=== PATIENT | male | born 1985 | race African-American/Black ===

== ENCOUNTER → 2016-05-06 | Emergency (ER) | payer OTHER ==
[~2016-05-06] VITALS: Ht 190.5 cm; Wt 130.2 kg
[~2016-05-06] MED LIST: CHLORPHENIRAMINE4 MG ORAL; CLOTRIMAZOLE15 GM TOPIC; IBUPROFEN600 MG ORAL; IBUPROFEN800 MG ORAL; METFORMIN HCL500 M1 ORAL; NORCO 7.5-3251 EACH ORAL; PRILOSEC20 MG ORAL; RANITIDINE HCL150 MG ORAL; ZANTAC150 MG ORAL; ZITHROMAX250 MG ORAL; metFORMIN 500mg tab ORAL SCH
[2016-05-06 23:00] VITALS: BP 140/99
--- NOTE | 2016-05-09 06:51 | Emergency Room Report ---
History of Present Illness General Chief Complaint: Skin Rash/Abscess Source: Patient Present Illness HPI Patient is a 30-year-old male who presented after having increased itchy rash to his groin area. The patient gradual onset of symptoms over the past 2 days. Patient was noted to be diabetic and poorly compliant with his diet and medications. Patient not having a fever. He reported having a rash gradual onset. He denied any pain. He had a mild itchiness. He was noted to have some elevated blood sugars. The patient had not been regularly taking his medication metformin. Allergies: Coded Allergies: No Known Allergies (Verified , 11/22/07) Patient History Past Medical History: see triage record Reviewed Nursing Documentation: PMH: Agreed, PSxH: Agreed Nursing Documentation-PMH Past Medical History: No History, Except For Hx Gastrointestinal Problems: Yes - ACID REFLUX Review of Systems All Other Systems: negative except mentioned in HPI Physical Exam Vital Signs Date Time Temp Pulse Resp B/P Pulse Ox O2 Delivery O2 Flow Rate FiO2 05/06/16 21:04 97.3 92 14 142/92 99 Room Air General Appearance: well appearing, no apparent distress, alert, GCS 15, obese Head: normocephalic, atraumatic ENT: hearing grossly normal, normal voice Neck: full range of motion, supple Respiratory: no respiratory distress, speaking full sentences Cardiovascular #1: normal peripheral pulses, regular rate, rhythm Gastrointestinal: non tender, soft Musculoskeletal: no calf tenderness Neurologic: normal inspection, alert, oriented x3, responsive, normal gait Psychiatric: normal inspection, mood/affect normal Skin: rash - scaly rash to inguinal area without erythema or exudate Medical Decision Making Diagnostic Impression: Primary Impression: Hyperglycemia Additional Impression: Tinea cruris ER Course Patient presented for skin rash. Differential diagnosis included was not limited to scabies, syphilis, herpes, tinea, among others. Patient's benign exam and does not appear to require any further imaging or laboratory testing at this time. Per the patient's family member the patient is poorly controlled diabetes baseline. The patient was given metformin. He was noted to have a rash consistent with tinea. The patient was given prescription for antifungal medications. The patient is advised to follow up with primary care doctor in 1 -2 days. Patient is advised to return if any worsening condition or if any changes in status that are concerning. Last Vital Signs Date Time Temp Pulse Resp B/P Pulse Ox O2 Delivery O2 Flow Rate FiO2 1/3/17 23:00 87 14 140/99 99 Room Air 05/06/16 23:00 97.5 Status: improved Disposition: HOME, SELF-CARE Condition: Stable Scripts Clotrimazole* (LOTRIMIN*) 15 Gm Cream..g. 1 APPLIC TOPIC TWICE A DAY, #15 GM Prov: Slava Tarango 05/06/16 Metformin Hcl* (METFORMIN HCL*) 500 Mg Tablet 500 MG ORAL TWICE A DAY, #60 TAB Prov: Slava Tarango 05/06/16 Patient Instructions: Alex [place], Type 2 Diabetes Mellitus, Adult, [id number] Slava Tarango May 09, 2016 06:51
== END | disposition home or self-care (01) ==
LOC: EMR 21:34
DX: E11.65 Type 2 diabetes mellitus with hyperglycemia (principal); B35.6 Tinea cruris; R21 Rash and other nonspecific skin eruption; Z91.11 Patient's noncompliance with dietary regimen; Z91.14 Patient's other noncompliance with medication regimen; K21.9 Gastro-esophageal reflux disease without esophagitis; Z79.84 Long term (current) use of oral hypoglycemic drugs
CPT/HCPCS: 82962; 99283; J1815

== ENCOUNTER 2016-10-02 03:59 | Emergency (ER) | payer OTHER ==
[~2016-10-02] VITALS: Ht 190.5 cm; Wt 122.5 kg
[~2016-10-02 03:59] MED LIST changes: -metFORMIN 500mg tab ORAL SCH
[2016-10-02 04:11] VITALS: BP 138/87
[2016-10-02] MEDS ORDERED: IBUPROFEN600 MG ORAL (04:29)
[2016-10-02] MEDS ORDERED: BACTRIM DS TAB1 EAC1 ORAL (04:29)
[2016-10-02] MEDS ORDERED: Bactrim DS (160mg/800mg) tab ORAL ONE (04:30)
--- NOTE | 2016-10-02 04:30 | Emergency Room Report ---
History of Present Illness General Chief Complaint: Skin Rash/Abscess Source: Patient Present Illness HPI This is a 30-year-old male with no significant past medical history. He presents with an abscess to his left buttock. Been ongoing for 3 days. Been draining last 2 days. He does have a history of diabetes. No fever chills but no nausea no vomiting. Pain is 5/10. Allergies: Coded Allergies: No Known Allergies (Verified , 11/22/07) Patient History Past Medical History: see triage record, old chart reviewed Past Surgical History: none Pertinent Family History: none Social History: Denies: smoking Immunizations: other Reviewed Nursing Documentation: PMH: Agreed, PSxH: Agreed Nursing Documentation-PMH Past Medical History: No History, Except For Hx Gastrointestinal Problems: Yes - ACID REFLUX Review of Systems Eye: Denies: blurred vision, eye pain ENT: Denies: ear pain, nose congestion, throat swelling Respiratory: Denies: cough, shortness of breath Cardiovascular: Denies: chest pain, palpitations Gastrointestinal: Denies: abdominal pain, diarrhea, nausea, vomiting Musculoskeletal: Denies: back pain, joint pain Skin: Denies: rash Neurological: Denies: headache, numbness Endocrine: Denies: increased thirst, increased urine Hematologic/Lymphatic: Denies: easy bruising All Other Systems: negative except mentioned in HPI Physical Exam Vital Signs Date Time Temp Pulse Resp B/P Pulse Ox O2 Delivery O2 Flow Rate FiO2 10/02/16 04:02 97.7 75 16 138/87 95 Room Air vitals normal Sp02 EP Interpretation: reviewed, normal General Appearance: well appearing, no apparent distress, alert Head: normocephalic, atraumatic Eyes: bilateral eye EOMI, bilateral eye PERRL ENT: hearing grossly normal, normal pharynx Neck: full range of motion, supple, no meningismus Respiratory: chest non-tender, lungs clear, normal breath sounds Cardiovascular #1: regular rate, rhythm, no murmur Gastrointestinal: normal bowel sounds, non tender, no mass, no organomegaly, no bruit, non-distended Rectal: other - Left buttock with indurated area of 4 cm. Small central pinpoint opening with purulent drainage. This is near the rectal area. Musculoskeletal: back normal, gait/station normal, normal range of motion Neurologic: alert, oriented x3 Psychiatric: mood/affect normal Skin: warm/dry Procedures Incision and Drainage Incision and Drainage : Consent: Verbal Site: Left buttock Blade Size: 11 I & D Procedure: betadine prep, sterile drapes applied, sterile dressing applied, gauze wick placed Anesthesia: 1% Lidocaine Volume Anesthetic (ccs): 3 Patient Tolerated: Well Complications: None Medical Decision Making Diagnostic Impression: Primary Impression: Left buttock abscess ER Course Patient with an abscess to the left buttock. Most likely MRSA. No evidence of deep infection. No redness. We'll discharge home with antibiotics. Last Vital Signs Date Time Temp Pulse Resp B/P Pulse Ox O2 Delivery O2 Flow Rate FiO2 10/02/16 04:11 97.7 75 16 138/87 95 Room Air Status: improved Disposition: HOME, SELF-CARE Condition: Stable Scripts Ibuprofen* (MOTRIN*) 600 Mg Tablet 600 MG ORAL Q8H Y for For Pain, #30 TAB 0 Refills Prov: TALYA RIVAS M.D. 10/02/16 Trimethoprim/Sulfamethoxazole 160/800* (BACTRIM DS TABLET*) 1 Each Tablet 1 TAB ORAL Q12H, #14 TAB 0 Refills Prov: TALYA RIVAS M.D. 10/02/16 Patient Instructions: Abscess Additional Instructions: Followup in 2 days for recheck. Return if worse. TALYA RIVAS M.D. Oct 02, 2016 04:29
[2016-10-02 04:41] VITALS: BP 132/87
[2016-10-02 04:48] VITALS: BP 132/87
== END 2016-10-02 04:50 | disposition home or self-care (01) ==
LOC: EMR 04:15
DX: L02.31 Cutaneous abscess of buttock (principal); K21.9 Gastro-esophageal reflux disease without esophagitis
CPT/HCPCS: 10060

== ENCOUNTER 2016-10-04 05:26 | Emergency (ER) | payer OTHER ==
[~2016-10-04] VITALS: Ht 190.5 cm; Wt 122.5 kg
[~2016-10-04 05:26] MED LIST changes: +BACTRIM DS TAB1 EAC1 ORAL
[2016-10-04 06:01] VITALS: BP 122/80
--- NOTE | 2016-10-07 08:04 | Emergency Room Report ---
History of Present Illness General Chief Complaint: Wound Recheck/Suture Removal Source: Patient Present Illness HPI The patient is a 30-year-old male who presented after having the recent incision and drainage. Patient had abscess drained approximately 2 days ago. He denied any current complaints. He denied history fluids. Patient requested packing be removed. Patient noted be diabetic. He denied any fever Allergies: Coded Allergies: No Known Allergies (Verified , 11/22/07) Patient History Past Medical History: see triage record, DM Reviewed Nursing Documentation: PMH: Agreed, PSxH: Agreed Nursing Documentation-PMH Past Medical History: No History, Except For Hx Gastrointestinal Problems: Yes - ACID REFLUX Review of Systems All Other Systems: negative except mentioned in HPI Physical Exam Vital Signs Date Time Temp Pulse Resp B/P Pulse Ox O2 Delivery O2 Flow Rate FiO2 10/04/16 05:32 98.1 98 16 121/79 100 Room Air General Appearance: well appearing, no apparent distress, alert, GCS 15, obese Head: normocephalic, atraumatic ENT: hearing grossly normal, normal voice Neck: full range of motion, supple Respiratory: no respiratory distress, speaking full sentences Musculoskeletal: normal inspection, no calf tenderness Neurologic: normal inspection, alert, oriented x3, responsive, normal gait Psychiatric: mood/affect normal Skin: no rash Medical Decision Making Diagnostic Impression: Primary Impression: wound check ER Course Patient presented for wound check. Differential diagnosis included was not limited to infected wound, nonhealed wound, neuroma, healed wound. Patient's benign exam and does not appear to require any further imaging or laboratory testing at this time. The packing was removed. There is no purulent drainage.The patient is advised to follow up with primary care doctor in 2 days. Patient is advised to return if any worsening condition or if any changes in status that are concerning. Last Vital Signs Date Time Temp Pulse Resp B/P Pulse Ox O2 Delivery O2 Flow Rate FiO2 10/04/16 06:01 98.1 66 16 122/80 100 Room Air Status: improved Disposition: HOME, SELF-CARE Condition: Improved Referrals: [facility] (PCP) Patient Instructions: Wound Check Slava Tarango Oct 07, 2016 08:04
== END 2016-10-04 06:05 | disposition home or self-care (01) ==
LOC: EMR 06:03
DX: Z09 Encounter for follow-up examination after completed treatment for conditions other than malignant neoplasm (principal); E11.9 Type 2 diabetes mellitus without complications; K21.9 Gastro-esophageal reflux disease without esophagitis
CPT/HCPCS: 99281

== ENCOUNTER 2018-09-09 21:35 | Emergency (ER) | payer OTHER ==
[~2018-09-09] VITALS: Ht 190.5 cm; Wt 112.0 kg
[2018-09-09 23:18] VITALS: BP 149/99
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
--- NOTE | 2018-09-09 23:26 | Emergency Room Report ---
History of Present Illness General Chief Complaint: Pain Source: Patient Present Illness HPI Patient is a 32-year-old male presented after increased numbness to both legs as well as burning sensation to his upper extremities. Patient reports being noncompliant with his medication for diabetes. He has type 2 diabetes. Patient was noted to be present with his mother. Patient had reportedly not been taking any medications but denies taking his blood sugar either. He denies any current polydipsia or polyuria. He had not been having a fever. Allergies: Coded Allergies: No Known Allergies (Verified , 11/22/07) Patient History Reviewed Nursing Documentation: PMH: Agreed; PSxH: Agreed Nursing Documentation-PMH Hx Diabetes: Yes Hx Gastrointestinal Problems: Yes - ACID REFLUX History Of Psychiatric Problem: Yes - BIPOLAR Review of Systems All Other Systems: negative except mentioned in HPI Physical Exam Vital Signs Date Time Temp Pulse Resp B/P (MAP) Pulse Ox O2 Delivery O2 Flow Rate FiO2 09/09/18 21:40 98.1 74 16 94 Room Air General Appearance: well appearing, no apparent distress, alert, GCS 15 Head: normocephalic, atraumatic ENT: hearing grossly normal, normal voice Neck: full range of motion, supple Respiratory: no respiratory distress, speaking full sentences Gastrointestinal: normal inspection, non tender Musculoskeletal: normal inspection Neurologic: normal inspection, alert, oriented x3, responsive, senior it auditor III-XII nml as tested, motor strength/tone normal, normal gait Psychiatric: mood/affect normal Skin: no rash Medical Decision Making Diagnostic Impression: Primary Impression: Hyperglycemia Additional Impression: Peripheral neuropathy ER Course Patient presented for bilateral lower extremity numbness and tingling. Patient patient was noted to be noncompliant diabetic. Differential diagnosis include was not limited to CVA, neuropathy, multiple sclerosis among others. Patient is a 32-year-old male presented after increased diffuse numbness. Differential diagnosis include was not limited to traumatic injury, neuropathy, shingles among others. . Patient has a benign exam and does not appear to require any further imaging or laboratory testing at this time. Patient noted to have a nonfocal neurologic exam. Patient was noted to have multiple areas of stocking glove distribution numbness. Patient was advised to follow-up with primary care physician for further evaluation and MRI. Patient is advised to be more compliant with his medications. He is given prescription for gabapentin for discomfort. Last Vital Signs Date Time Temp Pulse Resp B/P (MAP) Pulse Ox O2 Delivery O2 Flow Rate FiO2 09/09/18 21:40 98.1 74 16 94 Room Air Status: improved Disposition: HOME, SELF-CARE Condition: Stable Scripts Gabapentin* (GABAPENTIN*) 300 Mg Capsule 300 MG ORAL THREE TIMES A DAY, #30 CAP 0 Refills Prov: Slava Tarango MD 09/09/18 Referrals: [facility] (PCP) Slava Tarango MD September 09, 2018 23:26
[2018-09-09] MEDS ORDERED: GABAPENTIN300 MG ORAL (23:40)
[2018-09-09 23:55] VITALS: BP 149/99
--- NOTE | 2018-09-09 23:55 | NUR ---
ER DISCHARGE NOTE: Patient is cleared to be discharged per Dr. Tarango. Pt is aox4 on room air with stable vital signs. Pt was given dc and prescription instructions, pt was able to verbalize understanding, pt id band removed. pt is able to ambulate with steady gait. pt took all belongings.
== END 2018-09-09 23:55 | disposition home or self-care (01) ==
LOC: EMR 23:02
DX: E11.65 Type 2 diabetes mellitus with hyperglycemia (principal); E11.42 Type 2 diabetes mellitus with diabetic polyneuropathy; K21.9 Gastro-esophageal reflux disease without esophagitis; F31.9 Bipolar disorder, unspecified
CPT/HCPCS: 82962; 99282

== ENCOUNTER 2018-11-26 11:56 | Emergency (ER) | payer OTHER ==
[~2018-11-26] VITALS: Ht 190.5 cm; Wt 108.9 kg
[~2018-11-26 11:56] MED LIST changes: +GABAPENTIN300 MG ORAL
--- NOTE | 2018-11-26 12:32 | Emergency Room Report ---
History of Present Illness General Chief Complaint: Medication Refill Source: Patient Present Illness HPI 32-year-old male with history of diabetes and diabetic neuropathy currently on metformin and gabapentin here requesting a prescription refill on his gabapentin. Patient reports that he often gets burning sensation and tingling sensation in both feet. Has not seen his primary care physician in over 3 months. And has not been sent to handle sander operator. Patient demands to get a month supply of gabapentin and I advised him that he needs to see his primary care physician have hemoglobin A1c checked and we cannot give large quantities of this specific medication as patient is noncompliant with following up on his diabetes. Denies injury to the feet, chest pain, shortness of breath, palpitation, no other associated symptoms. Allergies: Coded Allergies: No Known Allergies (Verified , 11/22/07) Patient History Past Medical History: see triage record Past Surgical History: unable to obtain Pertinent Family History: none Immunizations: UTD Reviewed Nursing Documentation: PMH: Agreed; PSxH: Agreed Nursing Documentation-PMH Past Medical History: No History, Except For Hx Diabetes: Yes Hx Gastrointestinal Problems: Yes - ACID REFLUX Review of Systems All Other Systems: negative except mentioned in HPI Physical Exam Vital Signs Date Time Temp Pulse Resp B/P (MAP) Pulse Ox O2 Delivery O2 Flow Rate FiO2 11/26/18 12:23 98.4 87 16 122/87 (99) 98 Room Air Sp02 EP Interpretation: reviewed, normal General Appearance: normal inspection, well appearing, no apparent distress, alert, GCS 15 Head: normocephalic, atraumatic Eyes: bilateral eye normal inspection, bilateral eye PERRL ENT: normal ENT inspection, hearing grossly normal, normal pharynx, no angioedema Neck: normal inspection, full range of motion, supple, thyroid normal, no meningismus Respiratory: normal inspection, chest non-tender, lungs clear, normal breath sounds, no rhonchi, no wheezing Cardiovascular #1: normal inspection, normal peripheral pulses, regular rate, rhythm, no edema, no gallop, no JVD, no murmur Cardiovascular #2: 2+ dorsalis pedis (R), 2+ dorsalis pedis (L) Gastrointestinal: normal inspection, non tender, soft, no bruit, non-distended Genitourinary: no CVA tenderness Neurologic: normal inspection, alert, oriented x3 Psychiatric: normal inspection, judgement/insight normal, memory normal, mood/ affect normal Skin: no rash, palpation normal Lymphatic: normal inspection, no adenopathy Medical Decision Making PA Attestation All my diagnosis and treatment plans were reviewed ad discussed with my supervising physician Dr. Washington Diagnostic Impression: Primary Impression: Encounter for medication refill Additional Impression: Diabetic neuropathy ER Course 32-year-old male with history of diabetes and diabetic neuropathy currently on metformin and gabapentin here requesting a prescription refill on his gabapentin. Patient reports that he often gets burning sensation and tingling sensation in both feet. Has not seen his primary care physician in over 3 months. And has not been sent to handle sander operator. Patient demands to get a month supply of gabapentin and I advised him that he needs to see his primary care physician have hemoglobin A1c checked and we cannot give large quantities of this specific medication as patient is noncompliant with following up on his diabetes. Denies injury to the feet, chest pain, shortness of breath, palpitation, no other associated symptoms. Ddx considered but are not limited to: Drug-seeking behavior, medication refill , cellulitis, diabetic neuropathy Vital signs: are WNL, pt. is afebrile H&PE are most consistent with: Medication refill for diabetic neuropathy ORDERS: Gabapentin ED INTERVENTIONS: None required at this time. DISCHARGE: At this time pt. is stable for d/c to home. Will provide printed patient care instructions, and any necessary prescriptions. Care plan and follow up instructions have been discussed with the patient prior to discharge. Follow with your primary care for further work-up and refill of gabapentin Last Vital Signs Date Time Temp Pulse Resp B/P (MAP) Pulse Ox O2 Delivery O2 Flow Rate FiO2 11/26/18 12:23 98.4 87 16 122/87 (99) 98 Room Air Disposition: HOME, SELF-CARE Condition: Stable Scripts Gabapentin* (GABAPENTIN*) 300 Mg Capsule 300 MG ORAL THREE TIMES A DAY for 3 Days, #10 CAP 0 Refills Prov: David Hillman 11/26/18 Patient Instructions: Medicine Refill at the Emergency Department, Neuropathic Pain Additional Instructions: Follow-up with your primary care provider for further refills of this medication he also need to have months due to your diabetes in order to see fluctuations of your hemoglobin A1c. 4 large quantity is an emergency room setting you also need to be sent to a handle sander operator by your primary care physician. David Hillman Nov 26, 2018 12:32
[2018-11-26] MEDS ORDERED: GABAPENTIN300 MG ORAL (12:33)
[2018-11-26 12:38] VITALS: BP 122/87
--- NOTE | 2018-11-26 12:39 | NUR ---
ER DISCHARGE NOTE: Patient is cleared to be discharged per ERMD, pt is aox4, on room air, with stable vital signs. pt was given dc and prescription instructions, pt was able to verbalize understanding, pt id band removed without complications. pt is able to ambulate with steady gait. pt took all belongings.
== END 2018-11-26 12:38 | disposition home or self-care (01) ==
LOC: EMR 12:25
DX: Z76.0 Encounter for issue of repeat prescription (principal); E11.40 Type 2 diabetes mellitus with diabetic neuropathy, unspecified; K21.9 Gastro-esophageal reflux disease without esophagitis; Z79.84 Long term (current) use of oral hypoglycemic drugs; Z79.899 Other long term (current) drug therapy
CPT/HCPCS: 99282

== ENCOUNTER 2020-07-19 22:45 | Emergency (ER) | payer OTHER ==
[~2020-07-19] VITALS: Ht 193 cm; Wt 107.5 kg
[2020-07-19] MEDS ORDERED: Morphine Sulfate 2mg/ml Inj(IV/IM USE ONLY) IVP ONE (23:30)
[2020-07-19] MEDS ORDERED: Ketorolac 30mg Inj IV ONE (23:30)
--- NOTE | 2020-07-19 23:30 | Emergency Room Report ---
History of Present Illness General Chief Complaint: Edema Source: Patient Present Illness HPI Patient presents with 4 days of swelling and increased pain in his left ankle. He denies any trauma. There is no fever or chills. He is not take any medication for this. He has never had this problem before. Denies chest pain or shortness of breath. He injured it when he was a child and fractured it but there is been no recent injury. Patient states that this is never happened before. However in review of the medical record there are multiple ankle x-rays that have been taken in the past. His history of peripheral neuropathy. X-rays in the past of been negative. In January 2016 he was diagnosed with Achilles tendinitis. It was negative at that time also. (Grandmother states most ankle injuries occurred from playing basketball.) Patient takes Metformin for his diabetes and not insulin. Only when I was discussing the final diagnosis with the patient that he mentioned that he was discharged from the hospital in [place] 2 weeks ago. Apparently he passed out and fell down 15 stairs and broke his nose knocked teeth out and was treated for right-sided pneumonia. He was in the hospital 3 days. He states they did not find any blood clot at that time. (Grandmother states they told him that there was an "abnormality" on his EKG and they suggested that he have an echocardiogram when he returned to [place].) Discussed with - she states "bipolar disorder" not on meds - not good historian. Has the mentality of a 15-17 year old. Fractured R ankle in April. Grandmother Luis Felipe Sheehan very helpful with history and support. . 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: No Patient History Past Medical History: see triage record, DM, psych hx - bipolar disorder Social History: Reports: smoking, drug use - THC Social History Narrative Brought by girlfriend Reviewed Nursing Documentation: PMH: Agreed; PSxH: Agreed Nursing Documentation-PMH Hx Diabetes: Yes Hx Gastrointestinal Problems: Yes - ACID REFLUX Physical Exam Vital Signs Date Time Temp Pulse Resp B/P (MAP) Pulse Ox O2 Delivery O2 Flow Rate FiO2 07/19/20 22:51 97.5 75 18 139/69 (92) 97 Room Air Sp02 EP Interpretation: reviewed, normal General Appearance: well appearing, no apparent distress, GCS 15 Head: normocephalic Eyes: bilateral eye normal inspection, bilateral eye PERRL, bilateral eye EOMI ENT: moist mucus membranes Neck: supple Respiratory: lungs clear, normal breath sounds Cardiovascular #1: regular rate, rhythm, edema Cardiovascular #2: 2+ radial (R) Gastrointestinal: normal inspection, normal bowel sounds, non tender, no mass, non-distended Musculoskeletal: back normal, normal range of motion, calf tenderness, swelling - left ankle and foot Neurologic: alert, oriented x3, grossly normal Psychiatric: mood/affect normal - anxious and questioning procedures, resistant to care at times Skin: no rash, warm/dry Procedures Critical Care Time Critical Care Time Total Critical Care Time: 100 min bedside evaluation and treatment excludes procedures (EKG). Reason for critical care: DVT, abnormal EKG, discussion with transfer facility - multiple, discussions with grandmother, repeat evaluations Possible complications: hypotension, hypertension, CA, shock, arrhythmias, metabolic acidosis, end organ damage, respiratory failure. Interventions: analgesia, lovenox, aspirin, consultations with higher level of care, additional history from grandmother, repeat evaluations Course: Patient presented with left ankle pain and swelling without history of trauma aside from falling down stairs 2 weeks ago without injury at that time. Evaluation led to discovery of DVT. Lovenox administered. Plan to admit patient. Based on further history from grandmother concern of syncope leading to fall in [place]. EKG revealed possible ST elevation versus Brugada. Immediate consultation with [facility]. Multiple conversations with ER physician. Multiple conversations with foiling machine adjuster. Repeat conversations with emergency physician. Arrangement for transfer to higher level of care. Discussions with grandmother regarding further history. Repeat evaluations with improvement in pain and convincing patient to be transferred. Improved condition and arrangement for ALS transfer to [facility]. This is higher level of care. Life-threatening DVT along with possible significant abnormal EKG. In addition complex patient due to underlying psychiatric/developmental delay. Consultations: nursing staff, family, [facility] emergency department physician multiple conversations, [facility] foiling machine adjuster multiple conversations. Performed by: Dr. Cabrera Tolerated well condition = serious -requiring higher level of care. Medical Decision Making Diagnostic Impression: Primary Impression: DVT (deep venous thrombosis) Qualified Codes: I82.412 - Acute embolism and thrombosis of left femoral vein Additional Impressions: Left ankle pain Qualified Codes: M25.572 - Pain in left ankle and joints of left foot Edema Qualified Codes: R60.0 - Localized edema Diabetes Qualified Codes: E11.69 - Type 2 diabetes mellitus with other specified complication Abnormal EKG ER Course Patient presents with left ankle pain of 4 days. Initially he denied this ever happening before. However review of the records reveal that this is a recurrent problem. In the past was felt to be related to peripheral neuropathy, Achilles tendinitis amongst others. We need to also exclude gout and cellulitis or septic joint. The joint is not tender and therefore infection is less likely. There is some calf tenderness and we will exclude DVT. Labs with mild renal insufficiency. Glucose = 117. Uric acid normal. Duplex with DVT. Lovenox ordered. Will need evaluation for DVT. Complex patient with extensive DVT. Unable to start oral agent at this time and treat outpatient. With discussion of this dx, patient now reports recent hospitalization in [facility] d/ 2 weeks ago. States he did not have a clot there. EKG done - reading "STEMI" ST inversions septally. Patient without chest pain. Will send to [facility] and also order troponin. 135 Consider also Brugada pattern. Discussed with Dr. Hines [facility] ER - initially accepts based on EKG. Troponin = 0.00. Then called back to request we speak to special police as not STEMI activation. [address] Montemayor, Retail Shift Manager [facility]. She will present to attending. Repeat EKG - no change [address] Montemayor to get cardiac echo, nuclear stress test and CTA of heart. I stated I do not have the capability to do these (through Transfer Center). [address] Gilmore for assistance. Transfer center - Retail Shift Manager message "Just wait until morning." (This is before Dr. Gilmore had spoken to Fellow.) [address] Gilmore. Long discussion with Grandmother here. (Phone listed in HPI.) Laboratory Tests Test 07/19/20 23:33 07/20/20 01:40 07/20/20 02:10 07/20/20 05:00 White Blood Count 8.0 K/UL (4.8-10.8) Red Blood Count 5.95 M/UL (4.70-6.10) Hemoglobin 15.3 G/DL (14.2-18.0) Hematocrit 48.8 % (42.0-52.0) Mean Corpuscular Volume 82 FL (80-99) Mean Corpuscular Hemoglobin 25.6 PG (27.0-31.0) L Mean Corpuscular Hemoglobin Concent 31.3 G/DL (32.0-36.0) L Red Cell Distribution Width 13.4 % (11.6-14.8) Platelet Count 266 K/UL (150-450) Mean Platelet Volume 7.3 FL (6.5-10.1) Neutrophils (%) (Auto) 47.8 % (45.0-75.0) Lymphocytes (%) (Auto) 41.5 % (20.0-45.0) Monocytes (%) (Auto) 6.8 % (1.0-10.0) Eosinophils (%) (Auto) 3.1 % (0.0-3.0) H Basophils (%) (Auto) 1.0 % (0.0-2.0) Erythrocyte Sedimentation Rate 2 MM/HR (0-15) Prothrombin Time 10.7 SEC (9.30-11.50) Prothrombin Time INR 1.0 (0.9-1.1) Activated Partial Thromboplast Time 25 SEC (23-33) Sodium Level 142 MMOL/L (136-145) Potassium Level 4.3 MMOL/L (3.5-5.1) Chloride Level 106 MMOL/L (98-107) Carbon Dioxide Level 27 MMOL/L (21-32) Anion Gap 9 mmol/L (5-15) Blood Urea Nitrogen 19 mg/dL (7-18) H Creatinine 1.5 MG/DL (0.55-1.30) H Estimated Glomerular Filtration Rate > 60 mL/min (>60) Glucose Level 116 MG/DL (74-106) H Uric Acid 6.0 MG/DL (2.6-7.2) Calcium Level 8.8 MG/DL (8.5-10.1) Total Bilirubin 0.3 MG/DL (0.2-1.0) Aspartate Amino Transferase (AST) 15 U/L (15-37) Alanine Aminotransferase (ALT) 32 U/L (12-78) Alkaline Phosphatase 87 U/L (46-116) C-Reactive Protein, Quantitative 0.9 mg/dL (0.00-0.90) Total Protein 7.2 G/DL (6.4-8.2) Albumin 3.5 G/DL (3.4-5.0) Globulin 3.7 g/dL Albumin/Globulin Ratio 0.9 (1.0-2.7) L Troponin I 0.000 ng/mL (0.000-0.056) 0.000 ng/mL (0.000-0.056) Urine Color Pale yellow Urine Appearance Clear Urine pH 5 (4.5-8.0) Urine Specific [place] 1.020 (1.005-1.035) Urine Protein 3+ (NEGATIVE) H Urine Glucose (UA) 1+ (NEGATIVE) H Urine Ketones Negative (NEGATIVE) Urine Blood Negative (NEGATIVE) Urine Nitrite Negative (NEGATIVE) Urine Bilirubin Negative (NEGATIVE) Urine Urobilinogen Normal MG/DL (0.0-1.0) Urine Leukocyte Esterase 1+ (NEGATIVE) H Urine RBC 0-2 /HPF (0 - 0) H Urine WBC 0-2 /HPF (0 - 0) Urine Squamous Epithelial Cells None /LPF (NONE/OCC) Urine Bacteria None /HPF (NONE) Urine Opiates Screen Negative (NEGATIVE) Urine Barbiturates Screen Negative (NEGATIVE) Phencyclidine (PCP) Screen Negative (NEGATIVE) Urine Amphetamines Screen Negative (NEGATIVE) Urine Benzodiazepines Screen Negative (NEGATIVE) Urine Cocaine Screen Negative (NEGATIVE) Urine Marijuana (THC) Screen Positive (NEGATIVE) H EKG Diagnostic Results Troponin ordered: Yes When was troponin ordered?: Jul 20, 2020 - 135 Rate: normal Rhythm: NSR ST Segments: other - abnormal T waves septally ASA given to the pt in ED: Yes Rhythm Strip Diag. Results EP Interpretation: yes Rhythm: NSR, no PVC's, no ectopy Chest X-Ray Diagnostic Results Chest X-Ray Diagnostic Results : Chest X-Ray Ordered: Yes # of Views/Limited/Complete: 1 View Indication: Other EP Interpretation: Yes Interpretation: no consolidation, no effusion, no pneumothorax, other - slight cardiomegally Impression: Other Electronically Signed by: Electronically signed by Ciro Cabrera MD Other X-Ray Diagnostic Results Other X-Ray Diagnostic Results #1: X-Ray ordered: Left ankle # of Views/Limited Vs Complete: 3 View Indication: Other EP Interpretation: Yes Interpretation: no dislocation, no soft tissue swelling, no fractures Impression: No acute disease Electronically Signed by: Electronically signed by Ciro Cabrera MD Other X-Ray Diagnostic Results #2: X-Ray ordered: Left foot # of Views/Limited Vs Complete: 3 View Indication: Other EP Interpretation: Yes Interpretation: no dislocation, no soft tissue swelling, no fractures Impression: No acute disease Electronically Signed by: Chronic Last Vital Signs Date Time Temp Pulse Resp B/P (MAP) Pulse Ox O2 Delivery O2 Flow Rate FiO2 07/20/20 08:59 73 18 144/90 97 Room Air 07/20/20 05:26 97.5 Status: improved Disposition: [facility] - higher level of care Condition: Serious - stable Referrals: [facility] (PCP) Ciro Cabrera MD Jul 19, 2020 23:30
[2020-07-19 23:45] LABS: EOSINOPHILS % (AUTO) 3.1 % (0.0-3.0); HEMATOCRIT 48.8 % (42.0-52.0); HEMOGLOBIN 15.3 G/DL (14.2-18.0); LYMPHOCYTES % (AUTO) 41.5 % (20.0-45.0); MEAN CORPUSCULAR VOLUME 82 FL (80-99); MONOCYTES % (AUTO) 6.8 % (1.0-10.0); NEUTROPHILS % (AUTO) 47.8 % (45.0-75.0); PLATELET COUNT 266 K/UL (150-450); RED BLOOD COUNT 5.95 M/UL (4.70-6.10); RED CELL DISTRIBUTION WIDTH 13.4 % (11.6-14.8)
--- NOTE | 2020-07-20 | NUR ---
Pt reports c/o L ankle pain that began x4 days ago. Pt verbalizes not taking any medication for his pain since his pain began. Pt verbalizes localized L ankle pain at 8/10 that occurred spontaneously from waking up. Pt has Hx of diabetes and previous L ankle Fx when he was a child.
[2020-07-20 00:02] LABS: ALANINE AMINOTRANSFERASE 32 U/L (12-78); ALBUMIN 3.5 G/DL (3.4-5.0); ALBUMIN/GLOBULIN RATIO 0.9 (1.0-2.7); ALKALINE PHOSPHATASE 87 U/L (46-116); ANION GAP 9 mmol/L (5-15); ASPARTATE AMINO TRANSFERASE 15 U/L (15-37); BILIRUBIN,TOTAL 0.3 MG/DL (0.2-1.0); BLOOD UREA NITROGEN 19 mg/dL (7-18); CALCIUM 8.8 MG/DL (8.5-10.1); CARBON DIOXIDE 27 MMOL/L (21-32); CHLORIDE 106 MMOL/L (98-107); CREATININE 1.5 MG/DL (0.55-1.30); POTASSIUM 4.3 MMOL/L (3.5-5.1); SODIUM 142 MMOL/L (136-145)
--- NOTE | 2020-07-20 00:26 | NUR ---
Pt given urinal x45 minutes ago for urine sample. Pt continues to state he is unable to urinate. US at bedside performing scan on patient L leg.
[2020-07-20] MEDS ORDERED: Enoxaparin 100mg Inj SUBQ STA (01:07)
--- NOTE | 2020-07-20 01:16 | Diagnostic Imaging Report ---
EXAM: US Duplex Left Lower Extremity Veins CLINICAL HISTORY: DVT TECHNIQUE: Real-time duplex ultrasound scan of the left lower extremity veins integrating B-mode two-dimensional vascular structure, Doppler spectral analysis, color flow Doppler imaging and compression. COMPARISON: No relevant prior studies available. FINDINGS: Deep veins: Occlusive thrombus extending from the level of the mid femoral vein through the popliteal and pelvic veins. Superficial veins: Unremarkable. No thrombus in the visualized great saphenous vein. Soft tissues: No acute findings. No popliteal cyst. IMPRESSION: Occlusive thrombus extending from the level of the mid femoral vein through the popliteal and pelvic veins.
[2020-07-20] MEDS ORDERED: Aspirin Baby 81mg ORAL ONE (01:45)
[2020-07-20 02:27] LABS: APPEARANCE,URINE CLEAR; BILIRUBIN, URINE NEGATIVE (NEGATIVE); COLOR,URINE PALE YELLOW; GLUCOSE, URINE (UA) 1+ (NEGATIVE); KETONES,URINE NEGATIVE (NEGATIVE); LEUKOCYTE ESTERASE ,URINE 1+ (NEGATIVE); NITRITE,URINE NEGATIVE (NEGATIVE); PH,URINE 5 (4.5-8.0); PROTEIN,URINE 3+ (NEGATIVE); UROBILINOGEN,URINE NORMAL MG/DL (0.0-1.0)
[2020-07-20] MEDS ORDERED: Morphine Sulfate 2mg/ml Inj(IV/IM USE ONLY) IVP ONE (02:30)
--- NOTE | 2020-07-20 03:04 | NUR ---
report received from caren larson. pt connected to monitor. v/s stable. pt in no distress. will continue to monitor pt
--- NOTE | 2020-07-20 03:05 | NUR ---
Pt resting in bed with continued but decreased L ankle pain. Pt given another 2mg IV morphine for pain. VSS, respirations even and unlabored.
[2020-07-20 03:09] VITALS: BP 129/73
--- NOTE | 2020-07-20 03:33 | NUR ---
second ekg done. given to and signed by
--- NOTE | 2020-07-20 04:20 | NUR ---
pt sleeping on the cart. easily arousable. no complaints at this time. v/s stable. pt in no distress. will continue to monitor pt
--- NOTE | 2020-07-20 05:25 | NUR ---
report given to Matilde nuñez [facility] er.
[2020-07-20 05:26] VITALS: BP 131/76
[2020-07-20 07:19] VITALS: BP 153/93
--- NOTE | 2020-07-20 07:19 | NUR ---
rounded on pt, pt resting comfortably. vitals updated. Pt in NAD.
[2020-07-20 08:59] VITALS: BP 144/90
--- NOTE | 2020-07-20 08:59 | NUR ---
EMS arrived at this time.
--- NOTE | 2020-07-20 14:41 | Diagnostic Imaging Report ---
Indication: Chest pain Technique: One view of the chest Comparison: none Findings: The heart is enlarged. The lungs and pleural spaces are clear. There is no significant change Impression: Cardiomegaly. No acute process
--- NOTE | 2020-07-20 14:59 | Diagnostic Imaging Report ---
Indication: Left foot pain Technique: 3 views left foot Comparison: none Findings: The tips of the second and first toes are cut off the exam on the oblique an lateral views. No acute fracture. No dislocation. The joint spaces are preserved. Impression: Negative
--- NOTE | 2020-07-20 15:05 | Diagnostic Imaging Report ---
Indication: Left ankle pain Technique: 3 views of the left ankle Comparison: none Findings: No acute fracture. No dislocation. The joint spaces are preserved. Impression: Negative
== END 2020-07-20 09:00 | disposition short-term general hospital (02) ==
LOC: EMR 23:23 → EDBEDREQSVC 07-20 01:59 → EMR 07-20 09:00
DX: I82.412 Acute embolism and thrombosis of left femoral vein (principal); R60.0 Localized edema; R94.31 Abnormal electrocardiogram [ECG] [EKG]; E11.42 Type 2 diabetes mellitus with diabetic polyneuropathy; F17.200 Nicotine dependence, unspecified, uncomplicated; F31.9 Bipolar disorder, unspecified; Z79.84 Long term (current) use of oral hypoglycemic drugs; K21.9 Gastro-esophageal reflux disease without esophagitis; N28.9 Disorder of kidney and ureter, unspecified; I51.7 Cardiomegaly
CPT/HCPCS: 36415; 71045; 73610; 73630; 80053; 80307; 81001; 84484; 84550; 85025; 85610; 85651; 85730; 86140; 93005; 93971; 96374; 96375; 96376; J1650; J1885; J2270; J2405; Z7502; 99291; 99292